=== PATIENT | male | born 1980 | race Caucasian/White ===

== ENCOUNTER 2016-12-04 14:59 | Emergency (ER) | payer OTHER ==
[2016-12-04 15:43] LABS: HEMOGLOBIN 13.6 gm/dl (14.0-17.5); RED BLOOD COUNT 4.21 M/UL (4.20-5.50)
[2016-12-04 15:59] LABS: BUN/CREATININE RATIO 11 (0-10)
== END 2016-12-04 18:45 | disposition home or self-care (01) ==
LOC: ER1 14:59
PROVIDERS: Emergency Medicine
DX: N39.0 Urinary tract infection, site not specified (principal); N50.811 Right testicular pain; N43.3 Hydrocele, unspecified
CPT/HCPCS: 36415; 76870; 80053; 81001; 85025; 87077; 87086; 87186; 96374; 96375; 99284; J0696; J2270; J2405; J7050

== ENCOUNTER 2016-12-06 21:52 | Emergency (ER) | payer OTHER ==
[2016-12-07 04:15] LABS: HEMOGLOBIN 12.2 gm/dl (14.0-17.5); RED BLOOD COUNT 3.84 M/UL (4.20-5.50)
[2016-12-07 04:19] LABS: WHITE BLOOD COUNT 7.6 K/UL (4.5-11.0)
[2016-12-07 04:40] LABS: BUN/CREATININE RATIO 11 (0-10)
== END 2016-12-07 07:57 ==
LOC: ER1 21:52
PROVIDERS: Emergency Medicine
DX: N50.811 Right testicular pain (principal); R33.9 Retention of urine, unspecified
CPT/HCPCS: 36415; 76870; 80053; 83690; 85025; 96374; 96375; 99285; J2270; J2405

== ENCOUNTER 2016-12-19 11:35 | Emergency (ER) | payer OTHER | END 2016-12-19 18:55 | disposition home or self-care (01) | LOC: ER1 11:35 | DX: N50.82 Scrotal pain (principal) | CPT/HCPCS: 76870; 81001; 87086; 96372; 99284; J1885 ==